=== PATIENT | female | born 1990 | race Caucasian/White ===

== ENCOUNTER 2024-11-02 14:08 | Emergency (ER) | payer SELFPAY ==
[2024-11-02 15:11] VITALS: BP 119/78; PULSE 72; RESP 18; O2SAT 98; BMI 25.4
[2024-11-02 15:31] LABS: Microscopic, Urine URINE MICROSCOPIC (MICROSCOPIC)
--- OUTSIDE RECORDS SUMMARY | 2024-11-02 15:31 | XMS_ITS | Clinical Summary ---
Author Organization [facility] Address [address] [place] [address] Phone Care Team Providers Care Pad Tufter Name Role Phone Jet Thompson MD Primary Care Provider [phone] Allergies Active Allergy Reactions Criticality Noted Date Comments Amoxicillin Other (See Comments) 08/07/2009 uncertain Metronidazole 03/28/2012 Neck stiff, sob, sick to stomach Iodinated Contrast Media Shortness Of Breath Metoclopramide Shortness Of Breath 08/07/2009 Medications acetaminophen Oral TabIndications: pain Take 325 mg by mouth every 6 hours as needed for Pain. Indications: Pain Active albuterol (PROVENTIL HFA;VENTOLIN HFA) 90 mcg/actuation Inhl HFA Aerosol Inhaler Inhale 2 Puffs into the lungs every 4 hours as needed for Wheezing or Shortness of Breath. USE WITH SPACER 1 Inhaler 0 5 Active promethazine (PHENERGAN) 25 mg Oral Tablet Take 1 Tab by mouth every 6 hours as needed for Nausea. 25 Tab 0 6 Active Additional Information Patient not taking.Reason: Other, Reported on 02/20/2017 NAPROXEN SODIUM (ALEVE ORAL) Take by mouth. Ac tive Active Problems Problem Noted Date Diagnosed Date S/P laparoscopic procedure 10/10/2015 Pelvic pain in female 09/28/2015 Unspecified disorder of gallbladder 07/15/2014 Palpitations 11/10/2013 SOB (shortness of breath) 11/10/2013 Depression 10/12/2010 Surgical History Surgery Date Site/Laterality Comments BREAST LUMPECTOMY TONSILLECTOMY TYMPANOSTOMY TUBE PLACEMENT TUBAL LIGATION CHOLECYSTECTOMY, LAPAROSCOPIC 07/29/2014 Abdomen/N/A LAPAROSCOPIC CHOLECYSTECTOMY ; Surgeon: Jeovany Rico MD; Location: [facility]; Service: General SECTION 02/27/2010 N/A x3 LAPAROSCOPY 09/28/2015 Abdomen/N/A DAVINCI ROBOTIC LAPAROSCOPY LYSIS OF ADHESION; Surgeon: Esteban Santana MD; Location: [facility]; Service: Gynecology Medical History Medical History Date Comments Hypoglycemia Asthma as child Depression anxiety Heartburn Headache(784.0) Urinary tract infection Anemia Social History Tobacco Use Types Packs/Day Years Used Date Smoking Tobacco: Never Smokeless Tobacco: Never Alcohol Use Standard Drinks/Week Comments No 0 (1 standard drink = 0.6 oz pur e alcohol) Sexually Active Control Partners Comments Yes Surgical Male Tubal ligation Comments No Sex and Gender Information Value Date Recorded Sex Assigned at Not on file Legal Sex Female 9:56 PM EDT Gender Identity Not on file Sexual Orientation Not on file Obstetrics History Para Term AB IAB SAB Ectopic Multiple Livin g Live Births 5 3 3 2 2 2 3 Date Outcome GA Total Labor Labor/2nd/3rd Weight Sex Type Anes PTL Verito A1 A5 Name Clin 2006 Term M CS-LT ranv Neona daphney Demis e 2009 Term 39w 0d 0h 01m 7 lb 15 oz (3.6 kg) M CS-LT ranv Spinal Livin g 6 7 DEFRA NCES, MANUEL CA BABY 1 Gilberto Jenkins Delivery Location[facility] 2011 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 Livin g Last Filed Vital Signs Vital Sign Reading Time Taken Comments Blood Pressure 118/62 02/20/2017 11:19 AM EDT Pulse 72 09/30/2015 7:36 PM EDT Temperature 37.3 C (99.2 F) 09/30/2015 7:36 PM EDT Respiratory Rate 16 09/30/2015 7:36 PM EDT Oxygen Saturation 99% 09/30/2015 8:57 PM EDT Inhaled Oxygen Concentration - - Weight 46.4 kg (102 lb 3.2 oz) 02/20/2017 11:19 AM EDT Height 154.9 cm (5' 1 ) 02/20/2017 11:19 AM EDT Body Mass Index 19.31 02/20/2017 11:19 AM EDT Plan of Treatment Health Maintenance Due Date Last Done Comments Annual Wellness Exam 1992 DTaP/TDaP/Td (1 - Tdap) 2008 Hepatitis B Vaccine (1 of 3 - 19+ 3-dose series) 2008 Pap Smear 09/07/2018 09/08/2015, 04/09/2010, 09/12/2009 Cervical Cancer Screening 2019 HPV/Pap Cotest 2019 COVID-19 Vaccine (2023-2 5 season) 2024 Influenza Vaccine (Season Ended) 2025 Meningococcal B Vaccine Aged Out No l onger eligible based on patient's age to complete this topic Pneumococcal Vaccine 0-49 Aged Out No longer eligible based on patient's age to complete this topic Procedures Procedure Name Priority Date/Time Associated Diagnosis Comments PHYSICIAN PRACTICE COORDINATOR CYTOLOGY REPORT Routine 09/08/2015 3 :28 PM EDT from Last 3 Months or Most Recently Relevant to Health Maintenance Results * PHYSICIAN PRACTICE COORDINATOR CYTOLOGY REPORT (09/08/2015 3:28 PM EDT) Explosive Operator Fuse Cytology Report PATIENT NAME:JOSE MANUEL MURPHY Explosive Operator Fuse Cytology Report Accession Number Collected Date/Time Received Date/Time [id number] 09/08/15 15:28 EDT 09/08/15 17:12 EDT GY Specimen Source Specimen Vag/Cerv/Endocx?: Cerv/Endocerv Statement of Adequacy Satisfactory for Evaluation. Transformation Zone Present. Diagnosis NEGATIVE FOR INTRAEPITHELIAL LESION OR MALIGNANCY. Comment The Pap Smear is a screening test that aids in the detection of cervical cancer and cancer precursors. Both false positive and false negative results can occur. The test should be used at regular intervals, and positive results should be confirmed before definitive therapy. Processed using the [employer] Primary Care Sales Representative automated cytology screening device ([employer]). Sexual Assault Counsellor: SYEDA 09/12/2015 Completed by: CARLOS Stewart (Electronically signed by) 09/12/2015 [facility] 09/08/2015 3:28 PM EDT us Esteban Santana MD PATHOLOGY ORDERABLES Final Result [facility] [address] [place] [address] from Last 3 Months or Most Recently Relevant to Health Maintenance Insurance [address] [place] [id number] Care Teams Pad Tufter Relationship Specialty Start Date End Date Jet Thompson MD [address] [place] [address] PCP - General Family Medicine 07/06/14
--- NOTE | 2024-11-02 15:37 | HMH.EDGENADL ---
Discharge Plan Disposition Patient Disposition: Home, Self-Care Condition: Good Referrals Follow up/Referrals: Provider,Referral, [Primary Care Provider, Medical] - See instructions Activity Restrictions/Add. Instructions Additional Instructions/Restrictions: You were evaluated in the emergency department today. As we discussed, your CT scan read is pending. I feel your symptoms are likely infectious. Please make sure you eat a bland diet and stay hydrated. Follow-up very closely with your primary care provider for reassessment. Clinical Impressions Clinical Impression: Bilateral lower abdominal cramping, Feeling unwell Stand Alone Forms Stand Alone Forms: Work/School Release Instructions Patient Instructions: DI for Diarrhea and Traveler's Diarrhea -- Adult, DI for Nausea -- Adult Print Language Print Language: Uzbek Discharge ED Provider: Elvira Khoury General Adult HPI General Chief complaint: Nausea/Vomiting/Diarrhea Stated complaint: Stomache Virus Symptoms; Disoriented Time Seen by Provider: 11/02/24 15:16 Mode of Arrival: Ambulatory Source of Information: Patient Description of Symptoms (Recalled from ER Triage Doc. by RN): diarrhea and nausea over weekend. felt like heart racing. low grade fever resolved, but still feeling disoriented. reports boss asked her be checked out after looking pale, and not rembering her speaking with her. History of Present Illness HPI narrative: This patient is a 34 year old female who denies significant past medical history presenting to the emergency department for evaluation with concern for diarrhea, abdominal cramping, poor appetite, early satiety, low grade fevers, feeling like her heart is racing, and disorientation since Friday. She notes it initially started out with urgency to have bowel movements on Friday with increase in frequency of stools that were not really diarrhea. Bowel movements have slowed, but she has persistently had poor appetite, early satiety, low grade fevers, and these episodes of feeling flushed and like her heart is racing. She notes she had an episode at work today in which she got really pale and while talking to her boss, prompting evaluation here today. She states she feels disoriented and like something isn't right. She denies any signficiant pain, denies SOA, vomiting, urinary symptoms. Related Data Allergies Allergy/AdvReac Type Severity Reaction Status Date / Time amoxicillin Allergy Mild Unknown Verified 11/02/24 15:20 allergy reaction Iodinated Contrast Media Allergy Anaphylaxis Verified 11/02/24 15:20 metoclopramide (From Reglan) Allergy Unknown Verified 11/02/24 15:20 allergy reaction Penicillins Allergy Unknown Verified 11/02/24 15:20 allergy reaction PFSH PFS Disclaimer: The information contained in this section may have been updated after the patient was seen, as this information can be updated by other users. Medical History Anxiety Cholecystectomy planned Hyperglycemia Asthma Surgical History History of History of tonsillectomy H/O lumpectomy Social History Smoking Status: Never smoker alcohol intake: never current occupational status: employed Travel in the last 8 weeks?: None ROS Obtained: Yes All systems reviewed & no additional complaints except as documented Physical Exam General General appearance: alert and in no apparent distress Head Head exam: atraumatic and normocephalic Eye Eye exam: Present normal appearance, PERRL and EOMI ENT ENT exam: Present normal exam, normal oropharynx, mucous membranes moist and normal external ear exam Neck Neck exam: Present normal inspection, full ROM and trachea midline; Absent tenderness Chest Chest inspection: Present normal inspection and symmetric chest wall rise; Absent tenderness Respiratory Respiratory exam: Present normal lung sounds bilaterally; Absent respiratory distress, wheezes, stridor or accessory muscle use Cardiovascular Cardiovascular exam: Present regular rate and normal rhythm Abdominal Exam Abdominal exam: Present soft and tenderness (lower abdomen); Absent distention, guarding, rebound or rigidity Extremities Exam Extremities exam: Present normal inspection, full ROM and normal capillary refill; Absent tenderness or edema Back Exam Back exam: Present normal inspection and full ROM; Absent tenderness Neurological Exam Neurological exam: Present alert, oriented X3, CN II-XII intact and normal gait; Absent motor sensory deficit Psychiatric Psychiatric exam: Present normal affect and normal mood Skin Skin exam: Present warm and dry Medical Decision Making Medical Records Medical records reviewed: Yes I reviewed the patient's medical records. Screening: Per USPSTF and CDC recommendations, given the prevalence of disease in our region, it is our hospital?s policy to screen for HIV and viral Hepatitis for all patients aged 18 and over and those with ongoing risk factors. Yandel Inquiry Pt receiving controlled substance: No Vital Signs: 11/02/24 15:11 11/02/24 16:21 11/02/24 16:26 Temperature 99.1 F 99.1 F Temperature Source Oral Oral Pulse Rate 77 Pulse Rate [Right Brachial] 72 Respiratory Rate 18 16 Blood Pressure 102/72 L Blood Pressure [Right Arm] 119/78 Blood Pressure Mean [Right Arm] 91 Blood Pressure Source Automatic Cuff Blood Pressure Source [Right Arm] Automatic Cuff Blood Pressure Position Sitting Blood Pressure Position [Right Arm] Sitting 02 Sat by Pulse Oximetry 98 98 Oxygen Delivery Method Room Air Room Air 11/02/24 17:31 11/02/24 18:28 11/02/24 19:02 Temperature 99.7 F H 99.2 F Temperature Source Oral Oral Pulse Rate 87 79 70 Pulse Rate [Right Brachial] Respiratory Rate 16 18 16 Blood Pressure 114/74 106/72 L 104/70 L Blood Pressure [Right Arm] Blood Pressure Mean [Right Arm] Blood Pressure Source Automatic Cuff Automatic Cuff Automatic Cuff Blood Pressure Source [Right Arm] Blood Pressure Position Sitting Sitting Sitting Blood Pressure Position [Right Arm] 02 Sat by Pulse Oximetry 100 100 Oxygen Delivery Method Room Air Room Air Room Air Lab Data Lab results reviewed: Yes I reviewed the patient's lab results. Lab Results 11/02/24 15:10: Urine Color Yellow, Urine Appearance Clear, Urine pH 6.0, Ur Specific [place] <= 1.005, Urine Protein Negative, Urine Glucose (UA) Negative, Urine Ketones 2+, Urine Blood Negative, Urine Nitrate Negative, Urine Bilirubin Negative, Urine Urobilinogen 0.2, Ur Leukocyte Esterase Negative, Urine RBC Occasional, Urine WBC Occasional, Ur Squamous Epith Cells 3-5, Urine Bacteria 1+, Urine HCG, Qual Negative, Urine Opiates Screen Negative, Urine Methadone Screen Negative, Ur Barbituates Screen Negative, Ur Phencyclidine Scrn Negative, Ur Amphetamines Screen Negative, U Benzodiazepines Scrn Negative, Urine Cocaine Screen Negative, U Marijuana (THC) Screen Negative 11/02/24 16:00: WBC 7.5, RBC 5.03, Hgb 14.5, Hct 44.6, MCV 88.7, MCH 28.8, MCHC 32.5, RDW 12.3, Plt Count 317, MPV 10.8 H, Neut % (Auto) 69.6, Lymph % (Auto) 24.0, Miller % (Auto) 4.9, Eos % (Auto) 0.7, Baso % (Auto) 0.5, Neut # (Auto) 5.2, Lymph # (Auto) 1.8, Miller # (Auto) 0.4, Eos # (Auto) 0.1, Baso # (Auto) 0.0, Sodium 140, Potassium 3.8, Chloride 98, Carbon Dioxide 27, Anion Gap 18.8 H, BUN 8, Creatinine 0.70, Estimated Creat Clear 108, Estimated GFR 95, Est GFR ( Amer) 115, Glucose 112 H, Calcium 9.4, Magnesium 2.1, Total Bilirubin 0.9, AST 34, ALT 35, Alkaline Phosphatase 75, Total Protein 9.5 H, Albumin 5.3 H, Globulin 4.2 H, Albumin/Globulin Ratio 1.3, Lipase 85, TSH 1.14, Thyroxine (T4) 13.1 H 11/02/24 16:00 11/02/24 16:00 Orders (Tests/Meds): ED MEDICATIONS Discontinued Medications Generic Name Dose Route Start Last Admin Trade Name Freq PRN Reason Stop Dose Admin Lactated Ringer's 1,000 mls @ 999 mls/hr 11/02/24 15:27 11/02/24 16:16 Lactated Ringer's 1000 Ml Bag IV 11/02/24 16:27 999 mls/hr .Q1H1M ONE Administration Ketorolac Tromethamine 15 mg 11/02/24 17:13 11/02/24 17:23 Ketorolac 30mg/Ml Vial IV 11/02/24 17:14 15 mg ONCE ONE Administration Ondansetron HCl 4 mg 11/02/24 17:13 11/02/24 17:23 Ondansetron 4mg/2ml Vial IV 11/02/24 17:14 4 mg ONCE ONE Administration ORDERS Category Date Time Status CT abdomen pelvis wo con Stat Cat Scan 11/02/24 17:13 Completed Complete Blood Count Auto Diff Stat Lab 11/02/24 16:00 Completed Comprehensive Metabolic Panel Stat Lab 11/02/24 16:00 Completed Lipase Stat Lab 11/02/24 16:00 Completed MAG [Magnesium] Stat Lab 11/02/24 16:00 Completed T4 (Thyroxine) Stat Lab 11/02/24 16:00 Completed TSH [Thyroid Stimulating Hormone] Stat Lab 11/02/24 16:00 Completed UA [Urinalysis and Microscopic] Stat Lab 11/02/24 15:10 Completed UDS [Drug Screen,Urine] Stat Lab 11/02/24 15:10 Completed Urine , HCG Qual. Stat Lab 11/02/24 15:10 Completed ECG Data Tracing #1: I reviewed this ECG and interpreted as documented below: Normal sinus rhythm with a ventricular rate of [address] changes concerning for STEMI. Normal axis ECG initial impression date: 11/02/24 ECG initial impression time: 15:46 Medical Decision Narrative: In summary, this patient is a 34 year old female presenting to the Emergency Department for evaluation of disorientation, low grade fevers, palpitations, abdominal cramping, more frequent stools with urgency to have a bowel movement, nausea, poor appetite, early satiety. Differential diagnoses considered include but are not limited to infectious gastroenteritis, IBS, IBD, viral syndrome, dehydration, diverticulitis, cystitis. Ruling out the most morbid conditions drove assessment. On exam, the patient is sitting upright in no acute distress with normal vitals on cardiac telemetry. Abdominal exam demonstrates some mild lower abdominal tenderness but no rebound, guarding, or rigidity. She is alert and oriented, neurologically intact, no other findings concerning on exam. Workup included CBC, CMP, lipase, urinalysis, test, magnesium, TSH, T4. She was given a bolus of IV fluids. She declines Toradol for any pain and declines antiemetics, as she does not like taking medications. On reassessment, the patient states that she feels no better. She was given IV Toradol and Zofran, but she states that this did not help either. Given this, I elected to obtain CT abdomen pelvis without IV contrast. I independently interpreted CT prior to the radiologist read and noted no acute inflammatory process, no obstructive process. Please see their read for final interpretation. Labs were obtained that demonstrated reassuring CBC with no significant leukocytosis or anemia, reassuring chemistry with only very mildly elevated anion gap, likely due to patient's poor oral intake. She also howard 2+ ketones in her urine consistent with ketotic states with her poor oral intake. Glucose is normal and she is nondiabetic.. On reassessment, patient is able to tolerate oral intake with abdominal exam is benign. She states that she feels okay with going home with diagnosis of likely infectious gastroenteritis based on her symptoms and instructions for supportive care. She was given strict return precautions as well as instructions for close PCP follow-up. Critical Care Critical Care Time Critical Care Time: No
[2024-11-02 15:40] LABS: Bilirubin,Urine Negative (Negative); Color,Urine YELLOW (Yellow); Glucose,Urine (UA) Negative (Negative); Ketones,Urine 2+ (Negative); Leukocyte Esterase,Urine Negative (Negative); PH,Urine 6.0 (5.0-8.5); Protein,Urine Negative (Negative); Specific Gravity, Urine <= 1.005 (1.005-1.030); Urobilinogen,Urine 0.2 EU/dl (0.2)
--- NOTE | 2024-11-02 15:44 | ECG_ITS ---
APPROVED REPORT Exam: Resting ECG HR:76 bpm ECG Measurements Heart Rate 76 AXES OR 109 P 30 QRSd 98 QRS 92 QT 360 T 47 QTc 391 Conclusion SINUS RHYTHM WITH SHORT OR INTERVAL BORDERLINE RIGHT AXIS DEVIATION [QRS AXIS > 90] no STEMI Electronically signed by : ITALIA AGUILAR, 11/04/2024 20:50:37
[2024-11-02 15:49] LABS: Urine Pregnancy, HCG Qual. Negative (Negative)
[2024-11-02 15:53] LABS: Barbiturates Screen,Urine Negative ng/ml (<200)
[2024-11-02 15:54] LABS: Benzodiazepines Screen,Urine Negative ng/ml (<200)
[2024-11-02 15:55] LABS: Amphetamine/Metha Screen,Urine Negative ng/ml (<1000)
[2024-11-02 15:56] LABS: Methadone Screen,Urine Negative ng/ml (<300)
[2024-11-02 15:57] LABS: Phencyclidine Screen,Urine Negative ng/ml (<25)
[2024-11-02 15:58] LABS: Opiate Screen,Urine Negative ng/ml (<300)
[2024-11-02 16:05] LABS: Bacteria,Urine 1+ /lpf; RBC,Urine Occasional #/hpf (0-3); WBC,Urine Occasional #/hpf (0-3)
[2024-11-02] MEDS: LACTATED RINGERS 1000ML 1,000 ML 999 ML IV (16:16)
[2024-11-02 16:19] LABS: Hematocrit 44.6 % (37.0-47.0); Hemoglobin 14.5 g/dL (12.2-16.2); Immature Granulocytes % 0.3 %; Mean Corpuscular HGB Conc 32.5 g/dL (31.8-35.4); Mean Corpuscular Hemoglobin 28.8 pg (27.0-31.2); Mean Corpuscular Volume 88.7 fl (81-99); Nucleated Red Blood Cells % 0 %; Platelet Count 317 K/mm3 (142-424); Red Blood Count 5.03 M/mm3 (4.20-5.40); Red Cell Distribution Width-SD 39.9 fL; White Blood Count 7.5 K/mm3 (4.8-10.8)
[2024-11-02 16:21] VITALS: TEMP 37.3
[2024-11-02 16:22] LABS: Albumin Level 5.3 g/dl (3.5-5.0); Chloride 98 mmol/L (98-107); Potassium 3.8 mmoL/L (3.5-5.1); Sodium 140 mmol/L (136-145)
[2024-11-02 16:25] LABS: Alanine Aminotransferase 35 U/L (12-78); Albumin/Globulin Ratio 1.3 (1.1-1.8); Alkaline Phosphatase 75 U/L (38-126); Aspartate Amino Transferase 34 U/L (14-36); Bilirubin,Total 0.9 mg/dl (0.2-1.3); Blood Urea Nitrogen 8 mg/dl (7-17); Calcium 9.4 mg/dl (8.4-10.2); Creatinine Clearance Estimated 108 mL/min (50-200); Creatinine,Serum 0.70 mg/dl (0.52-1.04); Estimated Glomerular Filt Rate 95 ml/min (>60); GFR (African American) 115 ML/MIN (>60); Globulin 4.2 g/dL (1.3-3.2); Glucose 112 mg/dl (74-100); Lipase 85 U/L (23-300); Total Protein,Serum 9.5 g/dl (6.3-8.2)
[2024-11-02 16:26] VITALS: BP 102/72; PULSE 77; RESP 16; TEMP 37.3; O2SAT 98
[2024-11-02 16:26] LABS: Magnesium 2.1 mg/dl (1.6-2.3)
[2024-11-02 16:43] LABS: T4 (Thyroxine) 13.1 ug/dl (5.53-11.0)
[2024-11-02 16:56] LABS: Thyroid Stimulating Hormone 1.14 uIU/mL (0.465-4.68)
[2024-11-02 17:09] LABS: Anion Gap 18.8 mEq/L (5-15); Carbon Dioxide 27 mmol/L (22.0-30.0)
--- NOTE | 2024-11-02 17:13 | CT_ITS ---
PROCEDURE INFORMATION: Exam: CT Abdomen And Pelvis Without Contrast Exam date and time: 11/02/2024 5:20 PM Age: 34 years old Clinical indication: Abdominal pain; Additional info: Lower abd pain/cramping TECHNIQUE: Imaging protocol: Computed tomography of the abdomen and pelvis without contrast. Radiation optimization: All CT scans at this facility use at least one of these dose optimization techniques: automated exposure control; mA and/or kV adjustment per patient size (includes targeted exams where dose is matched to clinical indication); or iterative reconstruction. COMPARISON: No relevant prior studies available. FINDINGS: Liver: Normal. No mass. Gallbladder and biliary ducts: There are surgical clips within the gallbladder fossa. Pancreas: Normal. No ductal dilation. Spleen: Normal. No splenomegaly. Adrenal glands: Normal. No mass. Kidneys and ureters: Right renal Bosniak 1 cystic lesion that is homogeneous and fluid density (-9-20 HU), no septations or calcifications, having lopez smooth and thin. Measurement is 0.5 cm. No follow-up recommended. Stomach and bowel: Moderate size hiatal hernia with gastric cardia located at the inferior mediastinum. Appendix: No evidence of appendicitis. Intraperitoneal space: Unremarkable. No free air. No significant fluid collection. Vasculature: Unremarkable. No abdominal aortic aneurysm. Lymph nodes: Unremarkable. No enlarged lymph nodes. Urinary bladder: Unremarkable as visualized. Reproductive: Bilateral tubal ligation clips located within the pelvis. Bones/joints: Unremarkable. No acute fracture. Soft tissues: Normal. IMPRESSION: No acute findings. COMMENTS: Consistent with the [employer]'s Incidental Findings Committee white paper (J Am Armando Radiol 2018): Any incidental renal lesion less than 1 cm or classified as too small to characterize, or any incidental cystic renal lesion characterized as simple-appearing, is likely benign. No follow-up imaging is recommended for these lesions per consensus recommendations based on imaging criteria.
[2024-11-02] MEDS: KETOROLAC 30MG/ML VIAL 15 MG IV (17:23)
[2024-11-02] MEDS: ONDANSETRON 4MG/2ML VIAL 4 MG IV (17:23)
[2024-11-02 17:31] VITALS: BP 114/74; PULSE 87; RESP 16; TEMP 37.6; O2SAT 100
[2024-11-02 18:28] VITALS: BP 106/72; PULSE 79; RESP 18; O2SAT 100
[2024-11-02 19:02] VITALS: BP 104/70; PULSE 70; RESP 16; TEMP 37.3; O2SAT 96
== END 2024-11-02 19:03 | disposition home or self-care (01) ==
PROVIDERS: Emergency Provider Emergency Medicine
DX: R10.30 Lower abdominal pain, unspecified (principal); R25.2 Cramp and spasm; R19.7 Diarrhea, unspecified
CPT/HCPCS: 74176; 80053; 80307; 81001; 81025; 83690; 83735; 84436; 84443; 85025; 93005; 96361; 96374; 96375; 99285; J1885; J2405; J7120